=== PATIENT | female | born 1960 | race Two or more races ===

== ENCOUNTER 2018-01-19 18:17 | Emergency (ER) | payer OTHER ==
[~2018-01-19] VITALS: Ht 149.9 cm; Wt 62.1 kg
[2018-01-19] MEDS ORDERED: TETANUS/DIPHTHERIA TOX ADULT 0.5 ML SYR IM ONE (19:00)
--- NOTE | 2018-01-19 19:24 | Diagnostic Imaging Report ---
Right index finger 3 - views HISTORY: Pain status post trauma. COMPARISON: None FINDINGS: No displaced fracture. Osseous alignment is within normal limits. The joint spaces are well-maintained. The soft tissues appear unremarkable. IMPRESSION: No acute radiographic abnormality. Signed by: Dr. Roseanne Hanson M.D. on 01/19/2018 7:21 PM
[2018-01-19] MEDS ORDERED: ULTRAM 50MG50 MG PO (19:35)
== END 2018-01-19 19:56 | disposition home or self-care (01) ==
LOC: FSED 18:17
DX: S61.300A Unspecified open wound of right index finger with damage to nail, initial encounter (principal); W23.1XXA Caught, crushed, jammed, or pinched between stationary objects, initial encounter; Y92.008 Other place in unspecified non-institutional (private) residence as the place of occurrence of the external cause; E03.9 Hypothyroidism, unspecified
CPT/HCPCS: 90471; 90714; 99283